=== PATIENT | female | born 1980 | race Caucasian/White ===

== ENCOUNTER → 2016-12-11 | Outpatient (CLI) | payer OTHER ==
--- NOTE | 2016-12-12 02:00 | REP ---
Clinical: Pain. Technique: AP, lateral, bilateral oblique views of the left ankle. Findings: Lateral soft tissue swelling consistent with inversion injury. A corticated fragment at the lateral malleolus inferior to the fibular head suggests old fracture and less likely represents acute injury. Ankle mortise appears intact. Impression: Lateral swelling. Corticated fragment inferior to the fibular head suggests old injury. Signed by Daniel Mcelroy MD 12/12/2016 01:51 A
== END ==
LOC: M WUC 11:41
PROVIDERS: ATTEND Physician Assistant
DX: M79.89 Other specified soft tissue disorders (principal); M25.572 Pain in left ankle and joints of left foot